=== PATIENT | female | born 1945 | race Caucasian/White ===

== ENCOUNTER 2017-08-27 13:24 | Emergency (ER) | payer MEDICARE ==
[~2017-08-27] VITALS: Ht 166.4 cm; Wt 94.1 kg
[~2017-08-27 13:24] MED LIST: ALPR0.25 PO; ASPI81TA82 PO; CARI1TAB34 PO; CORE6.25 OR; FOLI1; FURO1TAB93 PO; LEVO50TA4 PO; LISI10 PO; LORA10TA7 PO; OXYC-360 PO; VITA100018 PO; ZOLO25TA PO; [UNRECOGNIZED DRUG - CODE] TOP
[2017-08-27 13:25] VITALS: BP 144/79; PULSE 64; RESP 16; TEMP 99.1; O2SAT 93
--- NOTE | 2017-08-27 14:22 | RADRPT ---
EXAM DATE/TIME: 08/27/2017 13:55 [facility] COMPARISON: CHEST SINGLE AP, January 14, 2013, 11:04. INDICATIONS : Chest pain on lower left side. MEDICAL HISTORY : Takotsudo syndrome. SURGICAL HISTORY : None. ENCOUNTER: Initial ACUITY: 1 day PAIN SCORE: 3/10 LOCATION: Bilateral chest FINDINGS: PA and lateral views of the chest demonstrate the lungs to be symmetrically aerated without evidence of mass, infiltrate or effusion. The cardiomediastinal contours are unremarkable. Osseous structure s are intact. Degenerative changes and scoliosis are noted throughout the thoracic spine. CONCLUSION: No acute cardiopulmonary disease. Osei Peres MD on August 27, 2017 at 14:19 Board Certified Radiologist. This report was verified electronically.
[2017-08-27 14:57] LABS: AUTOMATED NEUTROPHIL # 3.3 TH/MM3 (1.8-7.7); BASOPHIL % 0.7 % (0.0-2.0); EOSINOPHIL # 0.2 TH/MM3 (0-0.4); HEMATOCRIT 42.2 % (35.0-46.0); HEMOGLOBIN 14.2 GM/DL (11.6-15.3); LYMPH % 32.5 % (9.0-44.0); MEAN CELL VOLUME 96.2 FL (80.0-100.0); MEAN CORPUSCULAR HEMOGLOBIN 32.5 PG (27.0-34.0); MEAN CORPUSCULAR HGB CONC 33.8 % (32.0-36.0); MEAN PLATELET VOLUME 9.8 FL (7.0-11.0); MONO % 10.1 % (0.0-8.0); MONOCYTE # 0.6 TH/MM3 (0-0.9); NEUT % 53.7 % (16.0-70.0); PLATELET COUNT 228 TH/MM3 (150-450); RED BLOOD COUNT 4.38 MIL/MM3 (4.00-5.30); RED CELL DISTRIBUTION WIDTH 13.3 % (11.6-17.2); WHITE BLOOD COUNT 6.2 TH/MM3 (4.0-11.0)
[2017-08-27 15:16] LABS: BICARBONATE 29.3 MEQ/L (21.0-32.0); BLOOD UREA NITROGEN 14 MG/DL (7-18); CALCIUM 8.6 MG/DL (8.5-10.1); CHLORIDE 103 MEQ/L (98-107); CREATININE 0.73 MG/DL (0.50-1.00); GLOMERULAR FILTRATION RATE 78 ML/MIN (>89); GLUCOSE,RANDOM 131 MG/DL (74-106); MAGNESIUM 2.1 MG/DL (1.5-2.5); SODIUM (NA) 139 MEQ/L (136-145)
[2017-08-27 15:17] LABS: PROTHROMBIN TIME - PATIENT 10.4 SEC (9.8-11.6)
[2017-08-27 15:19] LABS: TROPONIN I LESS THAN 0.02 NG/ML (0.02-0.05)
[2017-08-27 15:25] VITALS: BP 207/95; PULSE 59; RESP 18; O2SAT 97
--- NOTE | 2017-08-27 15:27 | PD ---
HPI Chief Complaint: Chest Pain Time Seen by Provider: 15:10 Travel History International Travel<30 days: No Contact w/Intl Traveler<30days: No Traveled to known affect area: No History of Present Illness HPI 71-year-old female with a history of Takotsubo cardiomyopathy presents to emergency department complaining of left-sided chest pain for 3 days. Patient states that she has had an upper respiratory infection with cough and cold-like symptoms for approximately 2 weeks and suspects that this is the cause of her chest pain. She thinks she might have pleurisy although she does not have a history of this. States the pain is mild to moderate, nonradiating and is relieved with changing position. States the pain is occasionally sharp and only with movement. States she has this pain at night when lying flat. She denies shortness of breath, nausea, vomiting or diarrhea. Patient denies recent travel, history of DVTs or PEs, surgeries, fractures. Patient does not smoke, is not diabetic, denies any cholesterol issues. There is no significant family history of cardiac disease. 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 ) Respiratory: No Immunizations Current: Yes Thyroid Disease: Yes Tetanus Vaccination: Unknown Influenza Vaccination: No ?: Not Menopausal: Yes Past Surgical History Coronary Artery Bypass Graft: No Thoracic Surgery: Yes (CYSTS REMOVED @ [facility]) Tonsillectomy: Yes Other Surgery: Yes (LLE VEIN STRIPPING) Social History Alcohol Use: Yes (beer once a week ) Tobacco Use: No (QUIT 40 YEARS AGO ) Substance Use: No Allergies-Medications (Allergen,Severity, Reaction): Coded Allergies: Sulfa (Sulfonamide Antibiotics) (Unverified Allergy, Severe, RASH, 04/09/17 ) hydrochlorothiazide (Unverified Allergy, Severe, HIVES, 04/09/17) triamterene (Unverified Allergy, Severe, HIVES, 04/09/17) Reported Meds & Prescriptions Reported Meds & Active Scripts Active Reported Soma 350 Mg Tab (Carisoprodol) 350 Mg Tab 350 Mg PO HS Zovirax 5% Cream 2 Gm Tube (Acyclovir) 2 Applic/2 Gm Cr 1 Applic TOP 5 TIMES A DAY Lasix (Furosemide) 40 Mg Tab 20 Mg PO DAILY Prinivil 10 Mg Tab (Lisinopril) 10 Mg Tab 20 Mg PO DAILY Percocet (Oxycodone/Acetaminophen) 5 Mg/325 Mg Tab 1 Tab PO Q6HPRN FOR PAIN Coreg (Carvedilol) 6.25 Mg Tab 6.25 Mg OR BID Aspir-81 (Aspirin) 81 Mg Tab 81 Mg PO DAILY Folate 1 Mg Tab (Folic Acid) 1 Mg Tab 1 Mg .XX DAILY Vitamin D (Cholecalciferol) 1,000 Unit Tab 50,000 Unit PO WEEKLY Levothyroxine Sodium (Generic) (Levothyroxine Sodium) 50 Mcg Tab 50 Mcg PO DAILY Alprazolam 0.25 Mg Tab 0.25 Mg PO DAILYPRN Zoloft (Sertraline HCl) 25 Mg Tab 75 Mg PO DAILY Claritin (Loratadine) 10 Mg Tab 10 Mg PO DAILY Review of Systems Except as stated in HPI: all other systems reviewed are Neg Physical Exam Narrative GENERAL: Well-developed well-nourished in no apparent distress, resting comfortably in bed SKIN: Focused skin assessment warm/dry. HEAD: Atraumatic. Normocephalic. EYES: Pupils equal and round. No scleral icterus. No injection or drainage. ENT: No nasal bleeding or discharge. Mucous membranes pink and moist. Pharynx not injected without exudate. NECK: Trachea midline. No JVD. CARDIOVASCULAR: Regular rate and rhythm. No murmur appreciated. RESPIRATORY: No accessory muscle use. Clear to auscultation. Breath sounds equal bilaterally. GASTROINTESTINAL: Abdomen soft, non-tender, nondistended. MUSCULOSKELETAL: No obvious deformities. No clubbing. No cyanosis. No edema. Nontender to palpation of the chest wall. I'm unable to reproduce her pain. No CVA tenderness. NEUROLOGICAL: Awake and alert. No obvious cranial nerve deficits. Motor grossly within normal limits. Normal speech. PSYCHIATRIC: Appropriate mood and affect; insight and judgment normal. Data Data Last Documented VS Vital Signs Date Time Temp Pulse Resp B/P (MAP) Pulse Ox O2 Delivery O2 Flow Rate FiO2 1/3/18 17:03 08/27/17 15:25 59 18 97 Room Air 08/27/17 13:25 99.1 Orders Orders Electrocardiogram (08/27/17 13:39) Basic Metabolic Panel (Bmp) (08/27/17 13:39) Ckmb (Isoenzyme) Profile (08/27/17 13:39) Complete Blood Count With Diff (08/27/17 13:39) Magnesium (Mg) (08/27/17 13:39) Prothrombin Time / Inr (Pt) (08/27/17 13:39) Act Partial Throm Time (Ptt) (08/27/17 13:39) Troponin I (08/27/17 13:39) Chest, Pa & Lat (08/27/17 13:39) Ed Discharge Order (08/27/17 16:52) Labs Laboratory Tests Test 08/27/17 14:09 White Blood Count 6.2 TH/MM3 Red Blood Count 4.38 MIL/MM3 Hemoglobin 14.2 GM/DL Hematocrit 42.2 % Mean Corpuscular Volume 96.2 FL Mean Corpuscular Hemoglobin 32.5 PG Mean Corpuscular Hemoglobin Concent 33.8 % Red Cell Distribution Width 13.3 % Platelet Count 228 TH/MM3 Mean Platelet Volume 9.8 FL Neutrophils (%) (Auto) 53.7 % Lymphocytes (%) (Auto) 32.5 % Monocytes (%) (Auto) 10.1 % Eosinophils (%) (Auto) 3.0 % Basophils (%) (Auto) 0.7 % Neutrophils # (Auto) 3.3 TH/MM3 Lymphocytes # (Auto) 2.0 TH/MM3 Monocytes # (Auto) 0.6 TH/MM3 Eosinophils # (Auto) 0.2 TH/MM3 Basophils # (Auto) 0.0 TH/MM3 CBC Comment DIFF FINAL Differential Comment Prothrombin Time 10.4 SEC Prothromb Time International Ratio 1.0 RATIO Activated Partial Thromboplast Time 24.9 SEC Blood Urea Nitrogen 14 MG/DL Creatinine 0.73 MG/DL Random Glucose 131 MG/DL Calcium Level 8.6 MG/DL Magnesium Level 2.1 MG/DL Sodium Level 139 MEQ/L Potassium Level 3.7 MEQ/L Chloride Level 103 MEQ/L Carbon Dioxide Level 29.3 MEQ/L Anion Gap 7 MEQ/L Estimat Glomerular Filtration Rate 78 ML/MIN Total Creatine Kinase 97 U/L Troponin I LESS THAN 0.02 NG/ML MDM Medical Decision Making Medical Screen Exam Complete: Yes Emergency Medical Condition: Yes Differential Diagnosis Costochondritis, atypical chest pain, NSTEMI, Narrative Course 71-year-old female with a history of Takotsubo cardiomyopathy presents to emergency department complaining of left-sided chest pain for 3 days. Patient states that she has had an upper respiratory infection with cough and cold-like symptoms for approximately 2 weeks and suspects that this is the cause of her chest pain. She thinks she might have pleurisy although she does not have a history of this. States the pain is mild to moderate, nonradiating and is relieved with changing position. States the pain is occasionally sharp and only with movement. States she has this pain at night when lying flat. Patient denies recent travel, history of DVTs or PEs, surgeries, fractures. Patient does not smoke, is not diabetic denies any cholesterol issues. There is no significant family history of cardiac disease. Vital signs stable. Last Impressions Chest X-Ray 08/27/17 9839 Signed Impressions: Service Date/Time: Sunday, August 27, 2017 13:55 - CONCLUSION: No acute cardiopulmonary disease. Osei Peres MD Laboratory Tests Test 08/27/17 14:09 White Blood Count 6.2 TH/MM3 Red Blood Count 4.38 MIL/MM3 Hemoglobin 14.2 GM/DL Hematocrit 42.2 % Mean Corpuscular Volume 96.2 FL Mean Corpuscular Hemoglobin 32.5 PG Mean Corpuscular Hemoglobin Concent 33.8 % Red Cell Distribution Width 13.3 % Platelet Count 228 TH/MM3 Mean Platelet Volume 9.8 FL Neutrophils (%) (Auto) 53.7 % Lymphocytes (%) (Auto) 32.5 % Monocytes (%) (Auto) 10.1 % Eosinophils (%) (Auto) 3.0 % Basophils (%) (Auto) 0.7 % Neutrophils # (Auto) 3.3 TH/MM3 Lymphocytes # (Auto) 2.0 TH/MM3 Monocytes # (Auto) 0.6 TH/MM3 Eosinophils # (Auto) 0.2 TH/MM3 Basophils # (Auto) 0.0 TH/MM3 CBC Comment DIFF FINAL Differential Comment Prothrombin Time 10.4 SEC Prothromb Time International Ratio 1.0 RATIO Activated Partial Thromboplast Time 24.9 SEC Blood Urea Nitrogen 14 MG/DL Creatinine 0.73 MG/DL Random Glucose 131 MG/DL Calcium Level 8.6 MG/DL Magnesium Level 2.1 MG/DL Sodium Level 139 MEQ/L Potassium Level 3.7 MEQ/L Chloride Level 103 MEQ/L Carbon Dioxide Level 29.3 MEQ/L Anion Gap 7 MEQ/L Estimat Glomerular Filtration Rate 78 ML/MIN Total Creatine Kinase 97 U/L Troponin I LESS THAN 0.02 NG/ML Patient I had an extensive to excess her regarding her condition. Patient wishes to go home. At this point, I believe her cardiac risk factors are extremely low and is unlikely that this is cardiac related, however still possible. I explained this to the patient. I explained to the patient what to look out for and if she had any worsening pain to return to the emergency department. Patient states that [place]' and feels comfortable with this. Advised patient she may return at any point if she changes her mind. Patient states understanding and will comply with instructions. States that she will follow-up with her primary care physician tomorrow. She will return to the emergency department for worsening or persistent symptoms. Diagnosis Primary Impression: Atypical chest pain Referrals: Retail Performance Specialist Primary Care Physician Additional Instructions: Follow up with your primary care physician within 2-3 days. If your symptoms persist or worsen, return to the emergency department. Disposition: 01 DISCHARGE HOME Condition: Stable [place] Aug 27, 2017 15:27
--- NOTE | 2017-08-27 19:32 | PD ---
Data Data Last Documented VS Vital Signs Date Time Temp Pulse Resp B/P (MAP) Pulse Ox O2 Delivery O2 Flow Rate FiO2 08/27/17 17:03 08/27/17 15:25 59 18 97 Room Air 08/27/17 13:25 99.1 Orders Orders Electrocardiogram (08/27/17 13:39) Basic Metabolic Panel (Bmp) (08/27/17 13:39) Ckmb (Isoenzyme) Profile (08/27/17 13:39) Complete Blood Count With Diff (08/27/17 13:39) Magnesium (Mg) (08/27/17 13:39) Prothrombin Time / Inr (Pt) (08/27/17 13:39) Act Partial Throm Time (Ptt) (08/27/17 13:39) Troponin I (08/27/17 13:39) Chest, Pa & Lat (08/27/17 13:39) Ed Discharge Order (08/27/17 16:52) Labs Laboratory Tests Test 08/27/17 14:09 White Blood Count 6.2 TH/MM3 Red Blood Count 4.38 MIL/MM3 Hemoglobin 14.2 GM/DL Hematocrit 42.2 % Mean Corpuscular Volume 96.2 FL Mean Corpuscular Hemoglobin 32.5 PG Mean Corpuscular Hemoglobin Concent 33.8 % Red Cell Distribution Width 13.3 % Platelet Count 228 TH/MM3 Mean Platelet Volume 9.8 FL Neutrophils (%) (Auto) 53.7 % Lymphocytes (%) (Auto) 32.5 % Monocytes (%) (Auto) 10.1 % Eosinophils (%) (Auto) 3.0 % Basophils (%) (Auto) 0.7 % Neutrophils # (Auto) 3.3 TH/MM3 Lymphocytes # (Auto) 2.0 TH/MM3 Monocytes # (Auto) 0.6 TH/MM3 Eosinophils # (Auto) 0.2 TH/MM3 Basophils # (Auto) 0.0 TH/MM3 CBC Comment DIFF FINAL Differential Comment Prothrombin Time 10.4 SEC Prothromb Time International Ratio 1.0 RATIO Activated Partial Thromboplast Time 24.9 SEC Blood Urea Nitrogen 14 MG/DL Creatinine 0.73 MG/DL Random Glucose 131 MG/DL Calcium Level 8.6 MG/DL Magnesium Level 2.1 MG/DL Sodium Level 139 MEQ/L Potassium Level 3.7 MEQ/L Chloride Level 103 MEQ/L Carbon Dioxide Level 29.3 MEQ/L Anion Gap 7 MEQ/L Estimat Glomerular Filtration Rate 78 ML/MIN Total Creatine Kinase 97 U/L Troponin I LESS THAN 0.02 NG/ML MDM Supervised Visit with NABIL: Yes Narrative Course The history, exam, and medical decision-making in the associated mid-level provider note were completed with my assistance. I reviewed and agree with the findings presented. I attest that I had a [id number] encounter with the patient on the same day, and personally performed and documented my assessment and findings in the medical record. *My assessment and Findings: 71-year-old woman, presents to the emergency department left sided chest pain. She looks well. Symptoms only happen at night. They're not worse with exertion. They're very atypical for ACS symptoms. Only risk factors really her age, and then a couple medical problems. She has a low heart score based on this. EKG doesn't show any evidence of ischemia. Spoke with patient, as described as she is low risk but not no risk for ACS. Gave her option of chest pain Center admission versus outpatient follow-up. She is worried about her cats. She elected to follow up as an outpatient, but will return if she is a worsening symptoms. Diagnosis Primary Impression: Atypical chest pain Referrals: Hearing Instrument Specialist Primary Care Physician Patient Instructions: General Instructions, Chest Pain (ED) Departure Forms: Tests/Procedures Additional Instruction: Follow up with your primary care physician within 2-3 days. If your symptoms persist or worsen, return to the emergency department. Disposition: 01 DISCHARGE HOME Condition: Stable Justin Estrada MD Aug 27, 2017 19:32
--- NOTE | 2017-08-29 23:49 | EKG ---
Date Performed: 08/27/2017 Time Performed: 15:16:22 PTAGE: 71 years EKG: SINUS BRADYCARDIA SEPTAL MYOCARDIAL INFARCTION ABNORMAL ECG PREVIOUS TRACING : 01/14/2013 16.40 DOCTOR: Carlie Araujo Interpretating Date/Time 08/29/2017 23:48:47
== END 2017-08-27 17:03 | disposition home or self-care (01) ==
LOC: NEPC 13:24
DX: R07.89 Other chest pain (principal); I51.81 Takotsubo syndrome; I11.0 Hypertensive heart disease with heart failure; I50.9 Heart failure, unspecified; F32.9 Major depressive disorder, single episode, unspecified; Z88.2 Allergy status to sulfonamides
CPT/HCPCS: 71046; 80048; 82550; 83735; 84484; 85025; 85610; 85730; 93005; 99285